=== PATIENT | male | born 2000 | race Two or more races ===

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

== ENCOUNTER 2021-10-20 18:32 | Emergency (ER) | payer MEDICAID ==
[~2021-10-20] VITALS: Ht 167.6 cm; Wt 73.6 kg
[2021-10-20 20:41] LABS: Basophils # (auto) 0 10 ^3/uL (0-0.2); Basophils % (auto) 0.2 % (0.0-2.0); Eosinophils # (auto) 0 10 ^3/uL (0-0.8); Eosinophils % (auto) 0.5 % (0.0-7.0); Hematocrit 51.8 % (41.0-53.0); Hemoglobin 16.8 g/dL (13.5-17.5); Lymphocytes # (auto) 2.8 10 ^3/uL (0.4-5.4); Lymphocytes % (auto) 35.5 % (10.0-50.0); Mean Corpuscular Hemoglobin 29.6 pg (28.0-32.0); Mean Corpuscular Hgb Conc. 32.4 g/dL (32.0-36.0); Mean Corpuscular Volume 91.5 fL (80.0-100.0); Monocytes # (auto) 0.6 10 ^3/uL (0-1.3); Monocytes % (auto) 7.9 % (0.0-12.0); Neutrophils # (auto) 4.5 10 ^3/uL (1.6-8.6); Neutrophils % (auto) 55.9 % (37.0-80.0); Nucleated Red Blood Cells % 0.1 %; Red Blood Cells 5.67 10^6/uL (4.5-5.90); Red Cell Distribution Width 13.2 % (11.8-14.3)
[2021-10-20 20:51] VITALS: BP 143/89
[2021-10-20 20:55] LABS: Albumin 4.7 g/dL (3.4-5.0); Calcium 9.8 mg/dL (8.5-10.1); Potassium 3.8 mmol/L (3.5-5.1)
[2021-10-20 20:59] LABS: BUN/Creatinine Ratio 17.4; Bilirubin, Total 0.7 mg/dL (0.2-1.0); Total Protein 9.1 g/dL (6.4-8.2)
[2021-10-21 05:00] LABS: Urine WBC None Seen /hpf (0 - 3)
[2021-10-21 06:29] LABS: Urine Bacteria NONE SEEN /hpf (None Seen); Urine Blood Negative /uL (Negative); Urine Specific Gravity 1.037 (1.001-1.035)
== END 2021-10-21 06:32 | disposition left against medical advice (07) ==
LOC: ER 18:49
DX: R10.13 Epigastric pain (principal); R11.2 Nausea with vomiting, unspecified; R25.3 Fasciculation; Z53.21 Procedure and treatment not carried out due to patient leaving prior to being seen by health care provider
CPT/HCPCS: 36415; 80053; 81001; 83690; 85025